=== PATIENT | female | born 1960 | race Caucasian/White ===

== ENCOUNTER 2018-03-02 06:58 | Day surgery (SDC) | payer MEDICARE, BC ==
[2018-03-02] MEDS ORDERED: Sodium Chloride 0.9% 1,000 ML IV SCH (07:30)
[2018-03-02] MEDS ORDERED: Propofol 200 MG/20 ML SDV ONE ×2 (07:37→08:58)
[2018-03-02] MEDS ORDERED: fentaNYL 100 MCG/2 ML SDV ONE (07:37)
[2018-03-02] MEDS ORDERED: Midazolam 1 MG/ML 2 ML SDV ONE (07:37)
[2018-03-02 10:17] VITALS: BP 127/82
--- NOTE | 2018-03-02 11:36 | OR ---
DATE OF PROCEDURE: 03/02/2018 PROCEDURE: Colonoscopy. FINDINGS: 1. Very tortuous sigmoid colon. 2. Marginal prep. 3. No gross abnormalities aside from mentioned above. COMPLICATION: None. CUTTER TENDER: None. PREOPERATIVE DIAGNOSIS: Family history of colorectal cancer. POSTOPERATIVE DIAGNOSIS: Family history of colorectal cancer. RISKS: Risks, benefits, alternatives, and limitations including, but not limited to infection, bleeding, and perforation were explained to the patient, who wished to proceed. PROCEDURE IN DETAIL: The patient was placed in left lateral decubitus position. Digital rectal exam was performed without abnormality. The scope was introduced and advanced atraumatically to the ileocecal valve. A photo was taken of this. The patient did have a very tortuous sigmoid colon, although, the scope was able to be traversed through this and was never blindly advanced. Her prep was marginal with approximately 90% of the luminal surface could be seen. No masses. No polyps. No bleeding. No diverticulosis. No abnormalities on retroflexion. The patient tolerated the procedure well. Of note, the patient is recommended to have a followup colonoscopy in 5 years. Wyatt Brown MD /[id number]
== END 2018-03-02 10:40 | disposition home or self-care (01) ==
LOC: JP.SDS 06:58
PROVIDERS: ATTEND Surgery
DX: Z12.11 Encounter for screening for malignant neoplasm of colon (principal); K63.89 Other specified diseases of intestine; K21.9 Gastro-esophageal reflux disease without esophagitis; I10 Essential (primary) hypertension; E78.5 Hyperlipidemia, unspecified; Z80.0 Family history of malignant neoplasm of digestive organs
CPT/HCPCS: G0105; J2250; J2704; J3010; J7030

== ENCOUNTER 2021-11-26 07:23 | Day surgery (SDC) | payer MEDICARE, BC ==
[~2021-11-26 07:23] MED LIST: Midazolam 1 MG/ML 2 ML SDV ONE; Propofol 200 MG/20 ML SDV ONE; fentaNYL 100 MCG/2 ML SDV ONE
[2021-11-26] MEDS ORDERED: Sodium Chloride 0.9% 1,000 ML IV SCH (08:30)
[2021-11-26 10:03] VITALS: BP 103/63; PULSE 79
== END 2021-11-26 10:04 | disposition home or self-care (01) ==
LOC: JP.SDS 07:23
PROVIDERS: ATTEND Surgery
DX: Z12.11 Encounter for screening for malignant neoplasm of colon (principal); K63.89 Other specified diseases of intestine; I10 Essential (primary) hypertension; K21.9 Gastro-esophageal reflux disease without esophagitis; Z80.0 Family history of malignant neoplasm of digestive organs
CPT/HCPCS: J2250; J2704; J3010; J7030

== ENCOUNTER 2024-04-05 08:46 | Emergency (ER) | payer MEDICARE, BC ==
[2024-04-05 08:55] VITALS: BP 125/76; PULSE 95
[2024-04-05] MEDS: diphenhydrAMINE 25 MG Cap PO ONE (09:30)
== END 2024-04-05 10:33 | disposition home or self-care (01) ==
LOC: JP.ED 08:46
DX: K14.8 Other diseases of tongue (principal); I10 Essential (primary) hypertension; K21.9 Gastro-esophageal reflux disease without esophagitis; Z90.710 Acquired absence of both cervix and uterus; Z90.49 Acquired absence of other specified parts of digestive tract; Z79.899 Other long term (current) drug therapy
CPT/HCPCS: 99283; A9270